=== PATIENT | female | born 1975 | race Caucasian/White ===

== ENCOUNTER 2019-05-02 07:41 | Emergency (ER) | payer OTHER ==
--- NOTE | 2019-05-02 08:50 | EDM.PDOC ---
ED HPI GENERAL MEDICAL PROBLEM - General Chief Complaint: General Stated Complaint: Possible UTI Time Seen by Provider: 05/02/19 08:24 Source of Information: Reports: Patient History Limitations: Reports: No Limitations - History of Present Illness INITIAL COMMENTS - FREE TEXT/NARRATIVE: Patient is a 43-year-old female who presents to the emergency Department this morning with a complaint of dysuria. Patient states that when she urinated last evening about 1900 noticed small amount of blood. Frequency of urination increased and she also had a sensation of burning. This proceeded through the morning and she decided to present to the ER. Patient also has low back pain, however, she does have this intermittently. Patient had hysterectomy 8 years ago. Patient denies chest pain, shortness of breath, abdominal pain, nausea, vomiting, diarrhea, fever, vaginal discharge, or any trauma. Onset: Gradual Onset Date: 05/01/19 Onset Time: 19:00 Duration: Hour(s):, Getting Worse Location: Reports: Other (While urinating) Quality: Reports: Burning Severity: Mild Improves with: Reports: None Worsens with: Reports: None Context: Denies: Trauma Associated Symptoms: Reports: No Other Symptoms. Denies: Fever/Chills, Nausea/ Vomiting Lower Back Pain Score (Numeric/FACES): 4 - Related Data Allergies Allergy/AdvReac Type Severity Reaction Status Date / Time No Known Drug Allergies Allergy Cannot Verified 05/02/19 07:48 Remember Home Meds: Home Meds Aspirin 81 mg PO DAILY 01/13/19 [History] Cyanocobalamin (Vitamin B-12) [B-12 Dots] 500 mcg PO DAILY 01/13/19 [History] DULoxetine HCl [Duloxetine HCl] 60 mg PO DAILY 01/13/19 [History] Insulin Aspart [NovoLOG] 1 unit SUBCUT ASDIRECTED 01/13/19 [History] Insulin Glarg,Human.Rec.Analog [Lantus Solostar] 0 unit SUBCUT DAILY 01/13/19 [ History] Insulin Glarg,Human.Rec.Analog [Lantus Solostar] 20 unit SUBCUT BEDTIME [History] L.acidoph,Paracasei, B.lactis [Probiotic] 1 each PO DAILY 01/13/19 [History] Liraglutide [Victoza 3-Gianfranco] 18 mg SUBCUT DAILY 01/13/19 [History] Lysine 1,000 mg PO DAILY 01/13/19 [History] MV-Mn/Iron/FA/Herbal Cmplx#190 [Vitamin D3 Complete Caplet] 1 each PO DAILY [History] Magnesium Oxide [Magnesium] 400 mg PO DAILY 01/13/19 [History] Methylcellulose [Fiber] 500 mg PO ASDIRECTED 01/13/19 [History] Metoprolol Tartrate 12.5 mg PO DAILY 01/13/19 [History] Pantoprazole Sodium [Protonix] 40 mg PO DAILY 01/13/19 [History] Pravastatin [Pravachol] 80 mg PO DAILY 01/13/19 [History] Ramipril 10 mg PO DAILY 01/13/19 [History] metFORMIN HCl [Metformin HCl] 1,000 mg PO BID 01/13/19 [History] raNITIdine HCl [Ranitidine HCl] 300 mg PO BEDTIME 01/13/19 [History] valACYclovir HCl [valACYclovir] 1,000 mg PO ASDIRECTED 01/13/19 [History] Cephalexin [Keflex] 500 mg PO TID #21 capsule 05/02/19 [Rx] Past Medical History HEENT History: Reports: Impaired Vision, Sinusitis Cardiovascular History: Reports: High Cholesterol, Hypertension, Other (See Below) Other Cardiovascular History: dyslipidemia Respiratory History: Reports: None Gastrointestinal History: Reports: Colon Polyp, GERD, Irritable Bowel Syndrome Genitourinary History: Reports: UTI, Recurrent Musculoskeletal History: Reports: None, Other (See Below) Other Musculoskeletal History: shoulder bursitis. AC (acromioclavicular) arthritis. plantar fasciitis. 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 pruritis - Infectious Disease History Infectious Disease History: Reports: Chicken Pox - Past Surgical History HEENT Surgical History: Reports: Oral Surgery, Tonsillectomy Cardiovascular Surgical History: Reports: None Respiratory Surgical History: Reports: None GI Surgical History: Reports: Cholecystectomy, Colonoscopy, EGD, Polypectomy Female Surgical History: Reports: Hysterectomy Endocrine Surgical History: Reports: None Neurological Surgical History: Reports: Lumbar Spine Musculoskeletal Surgical History: Reports: Arthroscopic Knee Dermatological Surgical History: Reports: None Social & Family History - Family History Family Medical History: Noncontributory - Tobacco Use Smoking Status *Q: Never Smoker - Caffeine Use Caffeine Use: Reports: None - Recreational Drug Use Recreational Drug Use: No ED ROS GENERAL - Review of Systems Review Of Systems: ROS reveals no pertinent complaints other than HPI. Constitutional: Reports: No Symptoms HEENT: Reports: No Symptoms Respiratory: Reports: No Symptoms Cardiovascular: Reports: No Symptoms Endocrine: Reports: No Symptoms GI/Abdominal: Reports: No Symptoms : Reports: Dysuria, Hematuria Musculoskeletal: Reports: Back Pain (Low back pain) Skin: Reports: No Symptoms Neurological: Reports: No Symptoms Psychiatric: Reports: No Symptoms Hematologic/Lymphatic: Reports: No Symptoms Immunologic: Reports: No Symptoms ED EXAM, GENERAL - Physical Exam Exam: See Below Exam Limited By: No Limitations General Appearance: Alert, WD/WN, No Apparent Distress Nose: Normal Inspection, No Blood Throat/Mouth: Normal Inspection, Normal Oropharynx, No Airway Compromise Head: Atraumatic, Normocephalic Neck: Normal Inspection, Supple Respiratory/Chest: No Respiratory Distress, Lungs Clear, Normal Breath Sounds, No Accessory Muscle Use, Chest Non-Tender Cardiovascular: Regular Rate, Rhythm, No Murmur GI/Abdominal: Normal Bowel Sounds, Soft, Non-Tender, No Organomegaly, No Distention, No Abnormal Bruit, No Mass Back Exam: Paraspinal Tenderness (Lumbar). No: CVA Tenderness (L), CVA Tenderness (R) Extremities: Normal Inspection, No Pedal Edema Neurological: Alert, Oriented, Normal Cognition Psychiatric: Normal Affect, Normal Mood Skin Exam: Warm, Dry, Intact, Normal Color, No Rash Lymphatic: No Adenopathy Course - Vital Signs Last Recorded V/S: Last Vital Signs Temp 97.8 F 05/02/19 07:52 Pulse 90 05/02/19 07:52 Resp 16 05/02/19 07:52 BP 138/87 05/02/19 07:52 Pulse Ox 95 05/02/19 07:52 - Orders/Labs/Meds Labs: Laboratory Tests 05/02/19 Range/Units 07:50 Specimen Type Urincc Urine Color Yellow (YELLOW) Urine Appearance Slightly cloudy H (CLEAR) Urine pH 6.0 (5.0-9.0) Ur Specific [place] 1.020 (1.005-1.030) Urine Protein Negative (NEGATIVE) mg/dL Urine Glucose (UA) Negative (NEGATIVE) mg/dL Urine Ketones Negative (NEGATIVE) mg/dL Urine Occult Blood Large H (NEGATIVE) Urine Nitrite Negative (NEGATIVE) Urine Bilirubin Negative (NEGATIVE) Urine Urobilinogen 0.2 (0.2-1.0) E.U./dL Ur Leukocyte Esterase Trace H (NEGATIVE) Urine RBC 75-100 H (0-5) /HPF Urine WBC 10-20 H (0-5) /HPF Ur Epithelial Cells Moderate H /LPF Urine Bacteria Occasional (NONE TO FEW) /HPF - Re-Assessments/Exams Free Text/Narrative Re-Assessment/Exam: 05/02/19 08:52 Patient afebrile, vital signs stable, Rocephin 1 g IM given in ER. Keflex prescription sent to pharmacy Departure - Departure Time of Disposition: 08:53 Disposition: Home, Self-Care 01 Condition: Good Clinical Impression: UTI, Urinary tract infectious disease - Discharge Information Instructions: Antibiotic Medicine, Adult, [id number], Dysuria, Urinary Tract Infection, Adult, [id number] Referrals: Antonette Skinner MD [Primary Care Provider] - Forms: ED Department Discharge Additional Instructions: Follow-up with Dr. Olea in 3-5 days. Drink plenty of liquids. Return to emergency room sooner if symptoms continue or worsen. - Assessment/Plan Assessment:: BARI Plan: Follow-up with PCP
[2019-05-02] MEDS ORDERED: cefTRIAXone 1 GM Vial IM ONE (08:51)
[2019-05-02] MEDS ORDERED: cefTRIAXone 1 GM Vial ONE (08:51)
[2019-05-02] MEDS ORDERED: Lidocaine 1% 20 ML MDV ONE (08:52)
[2019-05-02] MEDS ORDERED: Lidocaine 1% 20 ML MDV INJECT ONE (08:55)
== END 2019-05-02 09:08 | disposition home or self-care (01) ==
LOC: KA.ED 07:41
DX: N39.0 Urinary tract infection, site not specified (principal); I10 Essential (primary) hypertension; E78.00 Pure hypercholesterolemia, unspecified; K21.9 Gastro-esophageal reflux disease without esophagitis; E11.9 Type 2 diabetes mellitus without complications; Z79.82 Long term (current) use of aspirin; Z79.4 Long term (current) use of insulin; Z79.899 Other long term (current) drug therapy
CPT/HCPCS: 81001; 87086; 96372; 99284; J0696; J2001